=== PATIENT | female | born 1960 | race Caucasian/White ===

== ENCOUNTER 2019-09-02 09:53 | Day surgery (SDC) | payer BC ==
[2019-08-31 15:30] VITALS: BMI 35.3
[2019-09-02] MEDS ORDERED: LIDOCAINE HCL/PF 2% SDV 5ML VIAL ONE (10:42)
[2019-09-02] MEDS ORDERED: PROPOFOL 20 ML ONE ×3 (10:43)
[2019-09-02 11:04] VITALS: TEMP 97.8
[2019-09-02 11:39] VITALS: BP 131/68; PULSE 70
== END 2019-09-02 11:30 | disposition home or self-care (01) ==
LOC: FASU-ENDO 09:53 → EDBD 12:00
PROVIDERS: ATTEND Internal Medicine Gastroenterology
PROC: 0DJD8ZZ Inspection of Lower Intestinal Tract, Via Natural or Artificial Opening Endoscopic (ICD-10-PCS; principal; 2019-09-02 10:41)
DX: Z12.11 Encounter for screening for malignant neoplasm of colon (principal); K64.1 Second degree hemorrhoids

== ENCOUNTER 2021-01-20 09:32 | Day surgery (SDC) | payer BC, OTHER ==
[2021-01-02 14:49] VITALS: BMI 23.8
[2021-01-20 09:53] VITALS: TEMP 97.8
[2021-01-20 12:15] VITALS: BP 110/65; PULSE 71
== END 2021-01-20 11:50 | disposition home or self-care (01) ==
LOC: FASU-ENDO 09:32
PROVIDERS: ATTEND Internal Medicine Gastroenterology
PROC: 0DB78ZX Excision of Stomach, Pylorus, Via Natural or Artificial Opening Endoscopic, Diagnostic (ICD-10-PCS; 2021-01-20)
PROC: 0DB48ZX Excision of Esophagogastric Junction, Via Natural or Artificial Opening Endoscopic, Diagnostic (ICD-10-PCS; 2021-01-20)
PROC: 0DB98ZX Excision of Duodenum, Via Natural or Artificial Opening Endoscopic, Diagnostic (ICD-10-PCS; principal; 2021-01-20 10:53)
DX: K21.00 Gastro-esophageal reflux disease with esophagitis, without bleeding (principal); K29.70 Gastritis, unspecified, without bleeding; B96.81 Helicobacter pylori [H. pylori] as the cause of diseases classified elsewhere; K22.8 Other specified diseases of esophagus; K31.89 Other diseases of stomach and duodenum; R10.13 Epigastric pain
CPT/HCPCS: 84703; 88305-TC; 88342-TC